=== PATIENT | male | born 1985 | race Caucasian/White ===

== ENCOUNTER 2019-12-10 17:34 | Emergency (ER) | payer MEDICAID ==
[2019-12-10] MEDS ORDERED: MOTRIN 400 MG PO ONE (17:44)
[2019-12-10] MEDS ORDERED: BACIGUENT PACKET TP ONE (17:46)
[2019-12-10 17:52] VITALS: O2SAT 98
[2019-12-10] MEDS ORDERED: BACIGUENT PACKET ONE (17:53)
[2019-12-10] MEDS ORDERED: MOTRIN 400 MG ONE ×2 (17:54→17:59)
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
[2019-12-10 18:36] VITALS: BP 136/99; PULSE 103
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
== END 2019-12-10 18:49 | disposition home or self-care (01) ==
LOC: ED 17:34
DX: S09.90XA Unspecified injury of head, initial encounter (principal); S00.31XA Abrasion of nose, initial encounter; S01.512A Laceration without foreign body of oral cavity, initial encounter; S00.03XA Contusion of scalp, initial encounter; R42 Dizziness and giddiness; T74.11XA Adult physical abuse, confirmed, initial encounter
CPT/HCPCS: 36000; 70450; 70486; 99284; A9270-GY